=== PATIENT | male | born 1965 | race Caucasian/White ===

== ENCOUNTER → 2018-01-14 08:15 | Outpatient (CLI) | payer OTHER, SELFPAY ==
[2018-01-14 08:40] LABS: Basophils % 0.5 % (0.1-2.0); Eosinophils # 0.2 K/mm3 (0.0-0.4); Eosinophils % 2.4 % (0.1-12.0); Hematocrit 41.7 % (42.0-52.0); Hemoglobin 12.8 g/dL (14.1-18.0); Lymphocytes % 25.7 % (10-50); Mean Corpuscular HGB Conc 30.7 g/dL (31.8-35.4); Mean Corpuscular Hemoglobin 25.5 pg (27.0-31.2); Mean Platelet Volume 8.6 fl (7.4-10.4); Monocytes # 0.5 K/mm3 (0.1-1.0); Monocytes % 7.2 % (1.7-9.3); Neutrophils # 4.9 K/mm3 (1.8-7.8); Neutrophils % 64.3 % (37.0-80.0); Platelet Count 288 K/mm3 (142-424); Red Blood Count 5.03 M/mm3 (4.60-6.20); Red Cell Distribution Width 15.3 % (11.5-17.5); White Blood Count 7.6 K/mm3 (4.8-10.8)
[2018-01-14 09:32] LABS: Alanine Aminotransferase 23 U/L (12-78); Albumin Level 3.3 gm/dL (3.4-5.0); Alkaline Phosphatase 80 U/L (46-116); Anion Gap 12.1 mEq/L (5-15); Aspartate Amino Transferase 14 U/L (15-37); Bilirubin,Total 0.4 mg/dL (0.2-1.0); Blood Urea Nitrogen 15 mg/dL (7-18); Calcium 8.5 mg/dL (8.5-10.1); Carbon Dioxide 27 mmol/L (21.0-32.0); Chloride 106 mmol/L (98-107); Chol/HDL Ratio 6.1 (1-3.5); Cholesterol 242 mg/dL (140-200); Creatinine,Serum 0.85 mg/dL (0.70-1.30); Estimated Glomerular Filt Rate 95 ml/min (>60); GFR (African American) 115 ML/MIN (>60); Globulin 3.4 gm/dl (1.3-3.2); Glucose 104 mg/dL (74-106); HDL Cholesterol 40 mg/dL (27-67); LDL Cholesterol 163 mg/dL (0-130); Potassium 4.1 mmoL/L (3.5-5.1); Sodium 141 mmol/L (136-145); Thyroid Stimulating Hormone 1.51 uIU/ml (0.358-3.740); Total Protein,Serum 6.7 gm/dL (6.4-8.2); Triglycerides 196 mg/dL (30-200); VLDL Cholesterol 39 mg/dL (0-40)
== END ==
PROVIDERS: PCP Family Medicine; Visit Provider Family Medicine
DX: R25.2 Cramp and spasm (principal); Z13.1 Encounter for screening for diabetes mellitus; Z13.220 Encounter for screening for lipoid disorders
CPT/HCPCS: 36415; 80053; 80061; 84443; 85025

== ENCOUNTER → 2019-03-20 16:06 | Outpatient (CLI) | payer OTHER, SELFPAY ==
--- NOTE | 2019-03-20 16:14 | XR_ITS ---
PROCEDURE: XR FOOT WT BEARING RT 3V CLINICAL INDICATION: pain COMPARISON: No exams were available for comparison FINDINGS: No fracture or dislocation. No lytic or blastic change. There is normal mineralization. Minimal osteoarthritic change 1st MTP joint Other findings:There is a small calcaneal spur. There are minimal osteoarthritic changes at the 1st MTP joint IMPRESSION: Minimal osteoarthritic change 1st MTP joint otherwise negative Dictated by: Tanvir Koo MD 03/20/2019 17:20 Electronically signed by Tanvir Koo MD in [place] 03/20/2019 17:20
--- NOTE | 2019-03-20 16:14 | XR_ITS ---
PROCEDURE: XR FOOT WT BEARING LT 3V CLINICAL INDICATION: pain COMPARISON: No exams were available for comparison FINDINGS: No fracture or dislocation. No lytic or blastic change. There is normal mineralization. The joint spaces are well-preserved. No significant degenerative/arthritic changes. No erosive changes evident. Other findings:There is a small calcaneal spur and there is an os trigonum IMPRESSION: No acute findings. Dictated by: Tanvir Koo MD 03/20/2019 17:19 Electronically signed by Tanvir Koo MD in [place] 03/20/2019 17:21
== END ==
PROVIDERS: PCP Family Medicine; Visit Provider Podiatrist
DX: M79.672 Pain in left foot (principal); M79.671 Pain in right foot
CPT/HCPCS: 73630

== ENCOUNTER 2020-11-16 09:14 | Emergency (ER) | payer OTHER, SELFPAY ==
[2020-11-16 09:15] VITALS: BP 120/88; PULSE 69; RESP 20; TEMP 36.6; O2SAT 98; BMI 28.4
--- NOTE | 2020-11-16 09:49 | HMH.EDUTC ---
[facility] [place] Clinical Impression: Exposure to COVID-19 virus Disposition: Home, Self-Care Condition on Discharge: Good Instructions: Preventing the Spread of Coronavirus Discharge Instructions Additional Instructions: You have been tested for COVID19. Please isolate as if you are positive until test results received. Referrals: Saran Mcallister MD [Primary Care Provider] - Time of Disposition: 09:59 Medical Decision Making - Benjamín Inquiry Pt receiving controlled substance: No Vital Signs: 11/16/20 09:15 Temperature 97.8 F Temperature Source Oral Pulse Rate [Right Brachial] 69 Respiratory Rate 20 Blood Pressure [Right Arm] 120/88 Blood Pressure Mean [Right Arm] 98 Blood Pressure Source [Right Arm] Automatic Cuff Blood Pressure Position [Right Arm] Sitting 02 Sat by Pulse Oximetry 98 Oxygen Delivery Method Room Air Orders (Tests/Meds): ORDERS Category Date Time Status Covid-19 Nasal PCR ([facility]) Routine Lab 11/16/20 09:37 Ordered [facility] [place] H[place] - General Stated complaint: exposure to covid Time Seen by Provider: 11/16/20 09:50 Mode of Arrival: Ambulatory Source of Information: Patient Limitations: No Limitations Description of Symptoms (Recalled from Triage Doc. by RN): PATIENT REQUESTING COVID TEST. TESTED POSITIVE YESTERDAY. DENIES SYMPTOMS HEENT Symptoms (Recalled from RN notes): No Resp Symptoms (Recalled from RN notes): No Skin Symptoms (Recalled from RN notes): No MS Symptoms (Recalled from RN notes): No Functional Status (Recalled from RN notes): WNL - History of Present Illness Provider Complaint: tested positive for COVID19 yesterday. She had been feeling poorly for 3-4 days. He has no symptoms at this time. Onset (ago): day(s) (1) Relieving factors: none Exacerbating factors: none Associated symptoms: denies other symptoms Treatments prior to arrival: none - Related Data Previous Rx's Medication Instructions Recorded diclofenac sodium 1 % topical gel 4 g TOPICAL QID PRN #100 g 03/28/19 methylprednisolone 4 mg tablets in See Rx Instructions PO PER PKG DIR 03/28/19 a dose pack #21 tab Allergies Allergy/AdvReac Type Severity Reaction Status Date / Time No Known Allergies Allergy Verified 03/28/19 15:17 - Worker's Comp Is this a Worker's Comp case?: No [facility] History - Hepatitis A Screen Drug use history?: No High risk sexual behaviors?: No History of sexually transmitted infection?: No Currently employed?: No Childcare worker?: No Do you have indoor plumbing?: Yes Do you have electricity?: Yes Attestation statement:: This patient has been screened for Hepatitis A risk factors. I have reviewed the patient's past medical history: Yes Medical History: Reports:: Gastroesophageal Reflux Disease(GERD), Hyperlipidemia Denies:: Cancer, Diabetes Mellitus Type 1, Diabetes Mellitus Type 2, Internal Pacemaker, Lung Disease, MRSA, Seizures Laterality Cases: Left: Arthroscopy Shoulder Other Surgeries: Yes: Colonoscopy. No: Pacemaker Amputation: No Fractures: No - Social History Smoking Status: Never smoker Alcohol Intake: never Occupational Status: employed Family Hx:: Diabetes, Heart Attack ROS Obtained: Yes All systems reviewed & no additional complaints Physical Exam - General General appearance: alert, in no apparent distress - Head Head exam: normocephalic - Eye Eye exam: Present: PERRL - ENT ENT exam: Present: normal oropharynx, TM's normal bilaterally - Neck Neck exam: Absent: lymphadenopathy - Chest Chest inspection: Present: normal inspection, symmetric chest wall rise - Respiratory Respiratory exam: Present: normal lung sounds bilaterally - Cardiovascular Cardiovascular exam: Present: regular rate, normal rhythm - Neurological Exam Neurological exam: Present: alert, oriented X3 - Psychiatric Psychiatric exam: Present: normal affect, normal mood - Skin Skin exam: Present: warm, dry, intact
[2020-11-16 10:03] VITALS: BP 120/88; PULSE 69; RESP 20; TEMP 36.6; O2SAT 98
== END 2020-11-16 10:05 | disposition home or self-care (01) ==
PROVIDERS: Emergency Provider Physician Assistant; PCP Family Medicine
DX: Z20.822 Contact with and (suspected) exposure to COVID-19 (principal); K21.9 Gastro-esophageal reflux disease without esophagitis; E78.5 Hyperlipidemia, unspecified
CPT/HCPCS: 99202; C9803; G0463; U0003; U0005

== ENCOUNTER → 2020-11-22 09:00 | Outpatient (CLI) | payer OTHER, SELFPAY | PROVIDERS: PCP Family Medicine; Visit Provider Nurse Practitioner | DX: Z20.822 Contact with and (suspected) exposure to COVID-19 (principal) | CPT/HCPCS: C9803; U0003; U0005 ==

== ENCOUNTER → 2021-01-28 14:58 | Outpatient (CLI) | payer OTHER, SELFPAY | PROVIDERS: PCP Family Medicine; Visit Provider Nurse Practitioner | DX: U07.1 COVID-19 (principal) | CPT/HCPCS: C9803; U0003; U0005 ==

== ENCOUNTER → 2022-04-21 08:51 | Outpatient (CLI) | payer OTHER, SELFPAY ==
--- NOTE | 2022-04-21 09:05 | US_ITS ---
FINAL REPORT TECHNIQUE: Sonographic images of the right upper quadrant were obtained. CLINICAL HISTORY: ABD PAIN FINDINGS: PANCREAS: The tail the pancreas is obscured, the head of the pancreas is normal. LIVER: Homogeneous. No focal hepatic lesion. No intrahepatic biliary ductal dilatation. GALLBLADDER: No gallstones. No gallbladder wall thickening or pericholecystic fluid. COMMON DUCT: 3 mm. Normal for age. RIGHT KIDNEY: The right kidney measures 10.0 cm. There is no hydronephrosis, mass, or stone. FREE FLUID: None. IMPRESSION: Unremarkable ultrasound of the right upper quadrant. Reviewed, Interpreted and Dictated by Johanna Suárez MD Transcribed by Sima Arriaza Authenticated and [facility]
== END ==
PROVIDERS: PCP Family Medicine; Visit Provider Physician Assistant
DX: R10.11 Right upper quadrant pain (principal)
CPT/HCPCS: 76705

== ENCOUNTER → 2022-04-28 09:37 | Outpatient (CLI) | payer OTHER, SELFPAY ==
--- NOTE | 2022-04-28 09:44 | NM_ITS ---
FINAL REPORT CLINICAL HISTORY: RUQ PAIN 9:50 am 8.36 [facility]ci tc choletec 1.9 mcg of cck injected into lt ant no gb stones on u/s done 04/21/22 no pain during cck FINDINGS: HEPATOBILIARY SCAN WITH CCK INJECTION Following intravenous administration of approximately 8.36 of technetium Choletec, multiple scintigraphic images were obtained. The hepatic parenchymal phase shows homogeneous distribution of the tracer throughout the liver. Ducts and bowel are visualized by 5 minutes. The gallbladder is visualized by 15 minutes. Following intravenous CCK injection, gallbladder ejection fraction is estimated to be 90 %. IMPRESSION: Normal gallbladder ejection fraction of 90 %. Reviewed, Interpreted and Dictated by Alexis Hannah III, MD Transcribed by Henry Felix Authenticated and [facility]
== END ==
PROVIDERS: PCP Family Medicine; Visit Provider Physician Assistant
DX: R10.11 Right upper quadrant pain (principal)
CPT/HCPCS: 78227; A9537; J2805

== ENCOUNTER → 2022-05-07 16:28 | Outpatient (CLI) | payer OTHER, SELFPAY ==
[2022-05-07 18:05] LABS: Alanine Aminotransferase 22 U/L (12-78); Aspartate Amino Transferase 32 U/L (17-59); Bilirubin,Unconjugated 0.4 mg/dL (0.0-1.1)
[2022-05-07 18:06] LABS: Albumin Level 4.4 g/dl (3.5-5.0); Alkaline Phosphatase 78 U/L (38-126); Bilirubin,Direct 0.2 mg/dl (0.0-0.4); Bilirubin,Indirect 0.4 mg/dL (0.0-0.9); Bilirubin,Total 0.6 mg/dl (0.2-1.3); Total Protein,Serum 6.9 g/dl (6.3-8.2)
[2022-05-07 18:11] LABS: C-Reactive Protein 2.9 mg/L (0-4)
== END ==
PROVIDERS: Nurse Practitioner; PCP Family Medicine; Visit Provider Physician Assistant
DX: R10.10 Upper abdominal pain, unspecified (principal)
CPT/HCPCS: 36415; 80076; 86140

== ENCOUNTER → 2022-06-08 15:33 | Outpatient (CLI) | payer OTHER, SELFPAY ==
--- NOTE | 2022-06-08 15:40 | US_ITS ---
FINAL REPORT TECHNIQUE: Limited sonographic imaging of the scalp soft tissues was obtained. CLINICAL HISTORY: MASS OF SCALP FINDINGS: There is a 2.7 x 2.6 x 1.2 cm, hyperechoic area in the left scalp at the region of interest of uncertain etiology. Findings may represent lipoma or other mass. This does not appear to represent simple fluid. IMPRESSION: Hyperechoic left scalp mass which may represent lipoma but does not appear to represent simple fluid. Reviewed, Interpreted and Dictated by Alexis Hannah III, MD Transcribed by Mikaela Duque Authenticated and [facility]
== END ==
PROVIDERS: PCP Family Medicine; Visit Provider Family Medicine
DX: R22.0 Localized swelling, mass and lump, head (principal)
CPT/HCPCS: 76536

== ENCOUNTER → 2022-08-17 13:29 | Outpatient (CLI) | payer OTHER, SELFPAY ==
--- NOTE | 2022-08-17 13:30 | CT_ITS ---
FINAL REPORT TECHNIQUE: Multiple axial CT sections were performed from the foramen magnum to the vertex. Coronal reformatted images were also obtained. Precontrast and postcontrast injection images were obtained. This study was performed with technique to keep radiation doses as low as reasonably achievable, (ALARA). Individualized dose reduction techniques using automated exposure control or adjustment of mA and/or kV according to the patient size were employed. CLINICAL HISTORY: mass on head FINDINGS: The ventricles are normal in size. There is no evidence of hemorrhage. No masses are identified. No extra-axial fluid collection is seen. The sinuses are normal. There is a left frontal scalp mass, fluid attenuation without contrast enhancement. This measures 2.7 x 2.5 x 0.7 cm in size, and is either subperiosteal, felt to be more likely, or subcutaneous, felt to be less likely. Postcontrast images demonstrate no abnormal enhancement. IMPRESSION: Left frontal scalp mass, either subperiosteal or subcutaneous cystic mass as described in the body of the report. This may represent a chronic subperiosteal hematoma or another other cystic mass. Reviewed, Interpreted and Dictated by Alexis Hannah III, MD Transcribed by Kelly Lanza Authenticated and [facility]
== END ==
PROVIDERS: PCP Family Medicine; Visit Provider Surgery
DX: D17.0 Benign lipomatous neoplasm of skin and subcutaneous tissue of head, face and neck (principal)
CPT/HCPCS: 70470; Q9966

== ENCOUNTER → 2022-09-23 15:44 | Outpatient (CLI) | payer OTHER, SELFPAY ==
[2022-09-23 16:20] LABS: Basophils % 0.5 % (0.1-2.0); Eosinophils # 0.1 K/mm3 (0.0-0.4); Eosinophils % 1.7 % (0.1-12.0); Hematocrit 46.7 % (42.0-52.0); Hemoglobin 15.2 g/dL (14.1-18.0); Lymphocytes # 1.9 K/mm3 (0.7-4.5); Lymphocytes % 24.5 % (10-50); Mean Corpuscular HGB Conc 32.6 g/dL (31.8-35.4); Mean Corpuscular Hemoglobin 27.4 pg (27.0-31.2); Mean Corpuscular Volume 83.9 fl (80-94); Mean Platelet Volume 8.4 fl (7.4-10.4); Monocytes # 0.6 K/mm3 (0.1-1.0); Monocytes % 7.7 % (1.7-9.3); Neutrophils % 65.6 % (37.0-80.0); Platelet Count 245 K/mm3 (142-424); Red Blood Count 5.56 M/mm3 (4.60-6.20); Red Cell Distribution Width 15.5 % (11.5-17.5); White Blood Count 7.6 K/mm3 (4.8-10.8)
[2022-09-23 16:39] LABS: Chloride 108 mmol/L (98-107)
[2022-09-23 16:40] LABS: Sodium 142 mmol/L (136-145)
[2022-09-23 16:43] LABS: Blood Urea Nitrogen 18 mg/dl (9-20); Calcium 9.9 mg/dl (8.4-10.2); Carbon Dioxide 26 mmol/L (22.0-30.0); Estimated Glomerular Filt Rate 88 ml/min (>60); GFR (African American) 106 ML/MIN (>60); Glucose 94 mg/dl (74-100)
== END ==
PROVIDERS: PCP Family Medicine; Visit Provider Surgery
DX: Z01.812 Encounter for preprocedural laboratory examination (principal); D17.0 Benign lipomatous neoplasm of skin and subcutaneous tissue of head, face and neck
CPT/HCPCS: 36415; 80048; 85025

== ENCOUNTER 2022-09-28 13:29 | Day surgery (SDC) | payer OTHER, SELFPAY ==
[2022-09-28] VITALS (8 sets, daily range): BP systolic 130–166; BP diastolic 72–100; PULSE 55–66; RESP 16–18; TEMP 36.3–36.8; O2SAT 91–981; BMI 28.7
--- NOTE | 2022-09-28 13:59 | EXP.GEN.HP ---
HPI HPI HPI: Patient presents for excision scalp lipoma. He is a pleasant 57-year-old male whom I have seen in the past for other issues. He presented to the office 08/06/2022 for referral for possible lipoma on the scalp. He states that he has had an area present for about 2 years. Initially it started out small but has increased in size. He did have an ultrasound of the area which reveals a 2.7 cm hyperechoic mass of uncertain etiology. It was felt that this could represent lipoma or other mass but is not fluid-filled cyst. Patient denies any trauma. Given the location and equivocal ultrasound findings I had him undergo CT scan to rule out any deep component or skull defect. This reveals left frontal scalp mass either subperiosteal or subcutaneous cystic mass measuring 2.7 cm longitudinally. [facility] Disclaimer: The information contained in this section may have been updated after the patient was seen, as this information can be updated by other users. Surgical History H/O repair of rotator cuff History of colonoscopy History of esophagogastroduodenoscopy (EGD) Family History (Updated 09/28/22 @ 13:41 by Ariane Steward RN) Family history of diabetes mellitus type II Family history of myocardial infarction Social History (Updated 09/28/22 @ 13:41 by Ariane Steward RN) Smoking Status: Never smoker alcohol intake: current current occupational status: employed Travel in the last 8 weeks: None caffeine: No Meds Home Medications and Allergies Home Medications Medication Instructions Recorded Confirmed Type pantoprazole 20 mg tablet,delayed 20 mg PO DAILY GERD 60 days #60 05/07/22 08/20/22 Rx release (Protonix) tabs New Prescriptions to Start Prescriptions: Allergies Allergy/AdvReac Type Severity Reaction Status Date / Time No Known Allergies Allergy Verified 09/28/22 13:39 Exam Data for Last 24 hours Vital signs and Labs for Last 24 Hours: Temp Pulse Resp BP Pulse Ox O2 Del Method 98.3 F 59 L 18 149/89 H 96 Room Air 09/28/22 13:43 09/28/22 13:43 09/28/22 13:43 09/28/22 13:43 09/28/22 13:43 09/28/22 13:43 I & O for Last 24 hours: Intake & Output 09/26/22 09/27/22 09/28/22 09/29/22 11:59 11:59 11:59 11:59 Weight 206 lb Constitutional Constitutional: no acute distress *Routine HEENT Exam Head: Present normocephalic Eye: Present EOMI and PERRL ENT: Present mucous membranes moist Comments: Visible palpable scalp lesion. *Routine Neck Exam Neck: Present supple; Absent lymphadenopathy *Routine Respiratory Exam Respiratory: Present CTA bilaterally *Routine Cardiovascular Exam Cardiovascular: Present RRR *Routine Abdominal Exam Abdominal: Present soft and normoactive bowel sounds; Absent tenderness *Routine Rectal Exam Rectal:: deferred *Routine Genitalia Exam Genitalia:: deferred *Routine Extremities Exam Extremities: Absent cyanosis, clubbing or edema *Routine Skin Exam Skin: Present warm; Absent rash *Routine Neurological Exam Neurological: Present alert and oriented X3 Assessment and Plan *Assessment and plan (1) Lipoma of scalp: Status: Acute Category: Medical Code(s): D17.0 - Benign lipomatous neoplasm of skin and subcutaneous tissue of head, face and neck Plan Excision of scalp lesion.
--- NOTE | 2022-09-28 14:04 | EXP.ANES.CKL ---
[facility] Disclaimer: The information contained in this section may have been updated after the patient was seen, as this information can be updated by other users. Surgical History H/O repair of rotator cuff History of colonoscopy History of esophagogastroduodenoscopy (EGD) Family History (Updated 09/28/22 @ 13:41 by Ariane Steward RN) Other Family history of diabetes mellitus type II Family history of myocardial infarction Social History (Updated 09/28/22 @ 13:41 by Ariane Steward RN) Smoking Status: Never smoker alcohol intake: current substance use type: denies use current occupational status: employed Travel in the last 8 weeks: None caffeine: No [facility] Anesthesia Checklist Patient Identification Patient Identification: Arm Band Structural Data Admitted From: Home Planned Operative Procedure/s: Excision of Scalp Cyst Consent for Planned Operative Procedure(s) Verified: Yes Verified Documents: Surgical Consent and History and Physical NPO Status Verified Time NPO: 06:30 Additional verifications Anesthesia Reactions: No Hx Blood Transfusions: No Airway Assessment Mallampati Score:: Class II C-Spine Mobility Assessed: Yes TMJ Mobility Assessed: Yes Dentition: Good Dentition Neurological Assessment Level of Consciousness: Awake and Alert Anesthesia Plan Anesthesia Risk discussed: Yes Anesthesia Plan: Verified ASA Class: I Anesthesia Type: General
--- NOTE | 2022-09-28 15:01 | EXP.OP.NOTE ---
Date of procedure: 09/28/22 Pre-op Diagnosis:: Subcutaneous lesion frontal scalp Post-op Diagnosis:: Same Procedure performed:: Excision of frontal scalp lesion (excisional length 3 cm) with intermediate complexity closure Surgeon:: Alexis Flores MD SUPERVISOR COMPOSING ROOM:: Amandeep Doss Anesthesia: local and LMA Estimated blood loss (mL): 10 Clinical Note:: Patient presents for excision scalp lipoma. He is a pleasant 57-year-old male whom I have seen in the past for other issues. He presented to the office 08/06/2022 for referral for possible lipoma on the scalp. He states that he has had an area present for about 2 years. Initially it started out small but has increased in size. He did have an ultrasound of the area which reveals a 2.7 cm hyperechoic mass of uncertain etiology. It was felt that this could represent lipoma or other mass but is not fluid-filled cyst. Patient denies any trauma. Given the location and equivocal ultrasound findings I had him undergo CT scan to rule out any deep component or skull defect. This reveals left frontal scalp mass either subperiosteal or subcutaneous cystic mass measuring 2.7 cm longitudinally. Operative findings:: Well-circumscribed lipomatous tissue down to the periosteum consistent with likely lipoma. Operative note:: Consent was obtained patient was taken the operating room. He was given preoperative intravenous antibiotics. In the operating room he was placed in a supine position. General anesthesia was induced via LMA. Area was prepped and draped in the standard surgical fashion. Lesion was marked with a skin marker for planned longitudinal incision. Boundaries of the lesion were marked. Local anesthetic was infiltrated. Transverse incision was made. Dissection was carried down through full-thickness of the skin to the superficial subcutaneous tissues. Galea was incised. There was lipomatous tissue encountered. With blunt dissection and some use of tenotomy dissection this was dissected free from the periosteum. It was dissected free in its entirety. It was sent off as a specimen. Hemostasis was achieved with electrocautery. Additional local anesthetic was infiltrated. Galea was closed with several interrupted 3-0 Vicryl sutures. Dermis was reapproximated with a couple of interrupted 3-0 Vicryl sutures. Skin was closed with 4-0 Monocryl in a subcuticular fashion. Dermabond and pressure dressing was applied. Condition: stable Disposition: PACU Complications:: None immediately apparent
--- NOTE | 2022-09-28 15:08 | P.PNANES_ITS ---
[facility] Anesthesia Record Part I Anesthesia Record I Intake, IV Amount: 800 Hydration: Adequate Estimated blood loss (mL): 5 Urine output (mL): 0 Blood Products used (#): none Blood Pressure: 144/92 SaO2: 91 Pulse Rate: 66 Airway Patency: Patent Respiratory Rate: 16 Temperature: 97.3 F Pain scale (0-10): 0 Nausea: No Vomiting: No Patient is:: Drowsy and Stable Stable to PACU at:: 15:05
--- NOTE | 2022-09-28 17:37 | P.PNANES_ITS ---
[facility] Anesthesia Record Part II Anesthesia Record Part II Discharge Time: 15:35 Destination: Surgical Day Care (OP Surgery) PACU nurse assessment reviewed?: Yes Patient Condition:: Good Anesthesia Complications:: None Swallowing reflex intact?: Yes Airway Patency: Patent Cyanosis?: No Blood Pressure: 166/96 SaO2: 981 Respiratory Rate: 16 Pulse Rate: 55 Temperature: 98.1 F Mental Status: Alert & Oriented Pain level:: 0 Nausea and/or vomitting:: None Intake, IV Amount: 0 Hydration: Adequate
== END 2022-09-28 16:06 | disposition home or self-care (01) ==
PROVIDERS: PCP Family Medicine; Visit Provider Surgery
PROC: (CPT 11423; principal; 2022-09-28 14:30)
DX: D17.0 Benign lipomatous neoplasm of skin and subcutaneous tissue of head, face and neck (principal)
CPT/HCPCS: 11423; 12032; 96374; J2405

== ENCOUNTER 2022-11-27 08:42 | Day surgery (SDC) | payer OTHER, SELFPAY ==
[2022-11-24 14:03] VITALS: BMI 28.5
--- NOTE | 2022-11-27 08:39 | P.HP_ITS ---
HPI HPI HPI: Patient presents for upper endoscopy. 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 When he followed up in the office on 10/22/2022 he described symptoms of dysphagia. He often feels like food gets stuck temporarily and then flushes down. I had previously performed upper endoscopy on him with dilatation to 20 mm on 10/22/2015. He has had several prior endoscopies before that. He actually had a prior history of esophageal food impaction requiring emergent upper endoscopy on 2 separate occasions, once with Dr. Fong and also at [facility]. In 2007 he had an upper endoscopy with dilatation by gastroenterology. In 2011 patient had symptoms of upper GI bleeding and Dr. Fong had performed upper endoscopy which revealed ulcer at the gastroesophageal junction. Plan was to proceed with upper endoscopy with biopsies and possible dilatation. [facility] Disclaimer: The information contained in this section may have been updated after the patient was seen, as this information can be updated by other users. Surgical History H/O repair of rotator cuff History of colonoscopy History of esophagogastroduodenoscopy (EGD) History of local excision of skin lesion Family History Other Family history of diabetes mellitus type II Family history of myocardial infarction Social History (Updated 11/27/22 @ 08:51 by Jacquelyn Deleon RN) Smoking Status: Never smoker alcohol intake: current substance use type: denies use current occupational status: employed Travel in the last 8 weeks: None caffeine: No Meds Home Medications and Allergies Home Medications Medication Instructions Recorded Confirmed Type pantoprazole 20 mg tablet,delayed 20 mg PO DAILY GERD 60 days #60 05/07/22 11/27/22 Rx release (Protonix) tabs New Prescriptions to Start Prescriptions: Allergies Allergy/AdvReac Type Severity Reaction Status Date / Time No Known Allergies Allergy Verified 11/27/22 08:49 Exam Data for Last 24 hours I & O for Last 24 hours: Intake & Output 11/24/22 11/25/22 11/26/22 11/27/22 11:59 11:59 11:59 11:59 Weight 205 lb Constitutional Constitutional: no acute distress *Routine HEENT Exam Head: Present normocephalic Eye: Present EOMI and PERRL ENT: Present mucous membranes moist *Routine Neck Exam Neck: Present supple; Absent lymphadenopathy *Routine Respiratory Exam Respiratory: Present CTA bilaterally *Routine Cardiovascular Exam Cardiovascular: Present RRR *Routine Abdominal Exam Abdominal: Present soft and normoactive bowel sounds; Absent tenderness *Routine Rectal Exam Rectal:: deferred *Routine Genitalia Exam Genitalia:: deferred *Routine Extremities Exam Extremities: Absent cyanosis, clubbing or edema *Routine Skin Exam Skin: Present warm; Absent rash *Routine Neurological Exam Neurological: Present alert and oriented X3 Assessment and Plan *Assessment and plan (1) Dysphagia: Status: Acute Category: Medical Code(s): R13.10 - Dysphagia, unspecified Plan Esophagogastroduodenoscopy with biopsies and possible dilatation
[2022-11-27 08:51] VITALS: BP 155/105; PULSE 61; RESP 18; TEMP 36.5; O2SAT 99
[2022-11-27 09:06] VITALS: O2SAT 99
--- NOTE | 2022-11-27 09:25 | P.PCN_ITS ---
Procedure: Date: 11/27/22 Patient Date of :: 1965 Procedure Performed:: Esophagogastroduodenoscopy and biopsy using pneumatic dilator to 18 mm Indications:: Patient presents for upper endoscopy. 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 When he followed up in the office on 10/22/2022 he described symptoms of dysphagia. He often feels like food gets stuck temporarily and then flushes down. I had previously performed upper endoscopy on him with dilatation to 20 mm on 10/22/2015. He has had several prior endoscopies before that. He actually had a prior history of esophageal food impaction requiring emergent upper endoscopy on 2 separate occasions, once with Dr. Fong and also at [facility]. In 2007 he had an upper endoscopy with dilatation by gastroenterology. In 2011 patient had symptoms of upper GI bleeding and Dr. Fong had performed upper endoscopy which revealed ulcer at the gastroesophageal junction. Plan was to proceed with upper endoscopy with biopsies and possible dilatation. Performing Provider:: Alexis Flores MD Referring Provider:: . Sedation:: MAC sedation Procedure:: ArrangePatient history was obtained and appropriate physical examination was performed. Patient's medications and allergies were reviewed. Informed consent was obtained after explaining the benefits, alternatives, and risks of the procedure including, but not limited to, bleeding, perforation, missed lesions, and adverse reaction to anesthesia medications. Patient was transported to endoscopy procedure room. Patient was connected to monitoring devices. Throughout the procedure the patient's blood pressure, pulse, and oxygen saturations were monitored continuously. Patient identification and planned procedure were verified by the staff. Patient was positioned in lateral decubitus position. Olympus endoscope was inserted via the oropharynx. Esophagus was cannulated. There is mild spasm. Gastroesophageal junction was encountered at approximately 35 cm. There was significant focal erosive esophagitis and findings of possible Cheng's esophagus with some luminal narrowing at the site. This was traversed although it was somewhat tight. Stomach was cannulated and insufflated. Retroflexion revealed moderate sliding hiatal hernia. He had some minor diffuse gastropathy. Biopsies were obtained. There were several gastric polyps consistent with fundic gland polyps which were biopsied. Pylorus was traversed and duodenum appeared unremarkable. Endoscope was withdrawn into the distal esophagus and multiple biopsies were obtained near the gastroesophageal junction at the site of erosive esophagitis and possible Cheng's esophagus. Dilatation was then performed sequentially using the elation pneumatic dilator from 15 mm to 16.5 to 18 mm. Endoscope was then advanced into the stomach which was desufflated and the endoscope was withdrawn. . Findings:: Gastroesophageal junction at 35 cm Significant focal distal esophageal erosive esophagitis with luminal narrowing Possible Cheng's esophagus Gastric fundic gland polyps Diffuse gastropathy Recommendations:: I will follow-up on the biopsies. If benign may need repeat endoscopy with additional dilatation in the near future. Complications:: None immediately apparent Estimated blood obtained (mL): 4 Colonoscopy Component Colonoscopy Component Was a colonoscopy performed during today's procedure?: No
[2022-11-27 09:26] VITALS: BP 109/64; PULSE 80; RESP 19; O2SAT 90
[2022-11-27 09:36] VITALS: BP 103/70; PULSE 75; RESP 16; O2SAT 91
[2022-11-27 09:46] VITALS: BP 105/71; PULSE 72; RESP 16; O2SAT 92
[2022-11-27 09:56] VITALS: BP 109/69; PULSE 86; RESP 16; TEMP 36.6; O2SAT 96
--- NOTE | 2022-11-27 15:54 | P.PNANES_ITS ---
[facility] Disclaimer: The information contained in this section may have been updated after the patient was seen, as this information can be updated by other users. Surgical History H/O repair of rotator cuff History of colonoscopy History of esophagogastroduodenoscopy (EGD) History of local excision of skin lesion Family History Other Family history of diabetes mellitus type II Family history of myocardial infarction Social History (Updated 11/27/22 @ 08:51 by Jacquelyn Deleon RN) Smoking Status: Never smoker alcohol intake: current substance use type: denies use current occupational status: employed Travel in the last 8 weeks: None caffeine: No [facility] Anesthesia Checklist Patient Identification Patient Identification: Arm Band and Family Structural Data Admitted From: Home Planned Operative Procedure/s: DGD Consent for Planned Operative Procedure(s) Verified: Yes Verified Documents: Surgical Consent NPO Status Verified Time NPO: 00:00 Additional verifications Anesthesia Reactions: No Hx Blood Transfusions: No Airway Assessment Mallampati Score:: Class II C-Spine Mobility Assessed: Yes TMJ Mobility Assessed: Yes Dentition: Good Dentition Neurological Assessment Level of Consciousness: Alert and Appropriate Hx Seizures: Yes Numbness or tingling in extremities: Yes Anesthesia Plan Anesthesia Risk discussed: Yes ASA Class: I Anesthesia Type: MAC
== END 2022-11-27 09:56 | disposition home or self-care (01) ==
PROVIDERS: PCP Family Medicine; Visit Provider Surgery
PROC: 0DJ08ZZ Inspection of Upper Intestinal Tract, Via Natural or Artificial Opening Endoscopic (ICD-10-PCS; CPT 43235; principal; 2022-11-27 09:30)
DX: R13.10 Dysphagia, unspecified (principal); K29.50 Unspecified chronic gastritis without bleeding; K31.7 Polyp of stomach and duodenum; K22.10 Ulcer of esophagus without bleeding
CPT/HCPCS: 43239; 43249

== ENCOUNTER → 2023-02-16 13:40 | Outpatient (CLI) | payer BC, SELFPAY ==
--- NOTE | 2023-02-16 13:44 | XR_ITS ---
FINAL REPORT CLINICAL HISTORY: left toe/foot pain. no trauma FINDINGS: Left foot Three views were obtained. There is no acute fracture or dislocation. The joint spaces appear normal. There is a moderate plantar spur. There is an os trigonum measuring 1 cm. IMPRESSION: No acute process. Reviewed, Interpreted and Dictated by Aaron Smiley MD Transcribed by Nidia Monahan Authenticated and [facility]
[2023-02-16 15:23] LABS: Basophils % 0.5 % (0.1-2.0); Eosinophils # 0.1 K/mm3 (0.0-0.4); Eosinophils % 1.3 % (0.1-12.0); Hematocrit 48.7 % (42.0-52.0); Hemoglobin 16.6 g/dL (14.1-18.0); Lymphocytes # 1.7 K/mm3 (0.7-4.5); Lymphocytes % 22.6 % (10-50); Mean Corpuscular Hemoglobin 29.1 pg (27.0-31.2); Mean Corpuscular Volume 85.6 fl (80-94); Mean Platelet Volume 8.9 fl (7.4-10.4); Monocytes # 0.5 K/mm3 (0.1-1.0); Monocytes % 6.9 % (1.7-9.3); Neutrophils # 5.2 K/mm3 (1.8-7.8); Neutrophils % 68.7 % (37.0-80.0); Platelet Count 264 K/mm3 (142-424); Red Blood Count 5.69 M/mm3 (4.60-6.20); Red Cell Distribution Width 14.4 % (11.5-17.5); White Blood Count 7.5 K/mm3 (4.8-10.8)
[2023-02-16 15:44] LABS: Uric Acid 7.4 mg/dl (3.5-8.5)
== END ==
PROVIDERS: PCP Nurse Practitioner Family; Visit Provider Nurse Practitioner Family
DX: M77.52 Other enthesopathy of left foot and ankle (principal); M79.675 Pain in left toe(s)
CPT/HCPCS: 73630; 84550; 85025

== ENCOUNTER 2023-04-03 11:59 | Emergency (ER) | payer BC, SELFPAY ==
[2023-04-03 12:01] VITALS: BP 101/73; PULSE 59; RESP 18; TEMP 36.7; O2SAT 96; BMI 29.9
[2023-04-03] MEDS: ONDANSETRON 4MG ODT 4 MG SL (12:15)
--- NOTE | 2023-04-03 12:37 | XR_ITS ---
PROCEDURE INFORMATION: Exam: XR Left Hand Exam date and time: 04/03/2023 12:37 PM Age: 58 years old Clinical indication: Injury or trauma; Left; Index finger and middle finger and ring finger; Patient HX: Saw accident, laceration to index, middle and ring fingers. Index being the worse, patient unable to straighten finger. TECHNIQUE: Imaging protocol: Radiologic exam of the left hand. Views: 3 or more views. COMPARISON: No relevant prior studies available. FINDINGS: Bones/joints: There is irregularity of the tuft of the distal phalanx of the 3rd finger-suggest clinical correlation with site of injury. No fracture of the 4th finger is identified. The 2nd finger/index is difficult to evaluate since it can not be straightened. There is an avulsion of the tuft of the distal phalanx series 3, image 1, series 4, image 1 with comminution and distraction of the fracture fragments in soft tissue laceration which may involve the nail bed. The middle phalanx appears intact. Soft tissues: As above. IMPRESSION: There is avulsion fracture of the tuft of the 2nd finger/index with comminution/fragmentation at the fracture site. The associated soft tissue laceration appears to involve the nail bed. No further definite fractures are identified although there is irregularity of the tuft of the 3rd finger/middle finger which could represent a nondisplaced fracture- suggest clinical correlation.
[2023-04-03] MEDS: MORPHINE 4MG/ML SYRINGE 4 MG IV (12:53)
--- NOTE | 2023-04-03 12:59 | PC.NURSE ---
DR RODRIGUEZ AT BEDSIDE
--- NOTE | 2023-04-03 13:01 | HMH.EDGENADL ---
Discharge Plan Disposition Patient Disposition: Xfer Other Prescriptions Prescriptions: No Action pantoprazole [Protonix] 20 mg tablet,delayed release (DR/EC) 20 mg PO DAILY 60 Days Qty: 60 4RF diclofenac sodium [Voltaren Arthritis Pain] 1 % gel 2 g topical QID PRN (Reason: pain and swelling) Qty: 100 1RF Rx Instructions: apply to left foot area Referrals Follow up/Referrals: Saran Mcallister MD [Primary Care Provider] - See instructions Clinical Impressions Clinical Impression: Finger laceration, Injury of extensor tendon of left hand, Open fracture of finger, Contact with powered saw as cause of accidental injury Instructions Patient Instructions: DI for Laceration Repair Discharge ED Provider: Jose Antonio Haq General Adult HPI General Chief complaint: Wound/Laceration Stated complaint: AO cut to left hand through three fingers Time Seen by Provider: 04/03/23 12:55 Mode of Arrival: Ambulatory Source of Information: Patient Limitations: No Limitations Description of Symptoms (Recalled from ER Triage Doc. by RN): patient states he was cutting a piece of board with a table saw and slipped and cut the left thumb, index and middle finger. Bleeding has slowed since arrival to ER. History of Present Illness HPI narrative: Patient is a 58-year-old male presents today with left hand injury after tablesaw cut his hand. States this been working with wood. Unknown tetanus vaccination status. The saw cut into the dorsal aspect of the left index finger over the proximal IP joint. His finger is in a fixed flexed position he is unable to extend it. Does have intact sensation distal to this injury. 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 Related Data Previous Rx's Medication Instructions Recorded pantoprazole 20 mg tablet,delayed 20 mg PO DAILY GERD 60 days #60 05/07/22 release (Protonix) tabs diclofenac sodium 1 % topical gel 2 g topical QID PRN pain and 02/16/23 (Voltaren Arthritis Pain) swelling #100 grams Allergies Allergy/AdvReac Type Severity Reaction Status Date / Time No Known Allergies Allergy Verified 02/16/23 13:05 [facility] Disclaimer: The information contained in this section may have been updated after the patient was seen, as this information can be updated by other users. Medical History (Updated 04/03/23 @ 13:08 by Jose Antonio Haq MD) Capsulitis of metatarsophalangeal (MTP) joint of right foot Dysphagia Exposure to COVID-19 virus Metatarsalgia of right foot Pain and swelling of toe of right foot Renal colic on left side Upper abdominal pain Surgical History H/O repair of rotator cuff History of colonoscopy History of esophagogastroduodenoscopy (EGD) History of local excision of skin lesion Family History Other Family history of diabetes mellitus type II Family history of myocardial infarction Social History Smoking Status: Never smoker alcohol intake: current substance use type: denies use current occupational status: employed Travel in the last 8 weeks: None caffeine: No ROS Obtained: Yes All systems reviewed & no additional complaints except as documented Physical Exam General General appearance: alert Respiratory Respiratory exam: Present normal lung sounds bilaterally Cardiovascular Cardiovascular exam: Present regular rate Extremities Exam Extremities exam: Present normal capillary refill (Distal to the injury also has normal sensation) and other (Large laceration over the index finger on the dorsal aspect from the distal aspect of the distal phalanx down through the proximal phalanx extending through the IP joints exposing bone and lacerating through the dorsal aspect of the proximal phalanx at its intra-articular surface patient's finger ); Absent normal inspection (Also lacerations to the dorsal aspect of the nailbed on the third digit and laceration to the dorsal aspect of the thumb as well all neurovascular tact) Neurological Exam Neurological exam: Present alert Medical Decision Making Benjamín Inquiry Pt receiving controlled substance: No Vital Signs: 04/03/23 12:01 Temperature 98.1 F Temperature Source Oral Pulse Rate [Left] 59 L Respiratory Rate 18 Blood Pressure [Right Arm] 101/73 L Blood Pressure Mean [Right Arm] 82 Blood Pressure Source [Right Arm] Automatic Cuff 02 Sat by Pulse Oximetry 96 Oxygen Delivery Method Room Air Orders (Tests/Meds): ED MEDICATIONS Discontinued Medications Generic Name Dose Route Start Last Admin Trade Name Freq PRN Reason Stop Dose Admin Hydromorphone HCl 1 mg 04/03/23 13:07 04/03/23 13:14 Hydromorphone 2mg/Ml Syringe IV 02/10/24 13:08 1 mg ONCE ONE Administration Cefazolin Sodium 2 gm/ Sodium 100 mls @ 200 mls/hr 04/03/23 13:00 04/03/23 13:13 Chloride IV 04/03/23 13:29 200 mls/hr ONCE ONE Administration Morphine Sulfate 4 mg 04/03/23 12:49 04/03/23 12:53 Morphine 4mg/Ml Syringe IV 04/03/23 12:50 4 mg ONCE ONE Administration Ondansetron HCl 4 mg 04/03/23 12:13 04/03/23 12:15 Ondansetron 4mg Odt SL 04/03/23 12:14 4 mg ONCE ONE Administration Tetanus/Reduced Diphtheria/Acell Pertussis 0.5 ml 04/03/23 13:00 04/03/23 13:13 Tet/Diphth/Pert-Adult 0.5ml Syringe IM 04/03/23 13:01 0.5 ml .ONCE ONE Administration ORDERS Category Date Time Status XR hand LT min 3V Stat Exams 04/03/23 12:37 Taken Medical Decision Narrative: Patient 58-year-old with a saw injury. Has an extensor tendon injury appears to be a complete rupture of his second index finger also the sawblade appears to have penetrated into the intra-articular surface of the proximal phalanx at the proximal interphalangeal joint. 2 g of Ancef have been given. I will the patient needs to be seen by hand surgeon today particular because the intra-articular injury to the bone. Sterile gauze will be placed over the wound and loosely covered I discussed the case with [facility] for further evaluation. I discussed the case with Dr. Wilkerson with plastic surgery [facility]. Given the fact that there is intra-articular involvement after further discussion I will transfer the patient to [facility] excepted by Dr. Flannery with plastics. Family is aware of this patient transferred in stable condition. Critical Care Critical Care Time Critical Care Time: No
--- NOTE | 2023-04-03 13:02 | PC.NURSE ---
CONTACTED [facility] AT THIS TIME FOR TRANSFER, AWAITING CALL BACK
[2023-04-03] MEDS: TET/DIPHTH/PERT-ADULT 0.5ML SYRINGE 0.5 ML IM (13:13)
[2023-04-03] MEDS: CEFAZOLIN SODIUM 2 GM in 0.9 % SODIUM CHLORIDE 100 ML IV (13:13)
[2023-04-03] MEDS: HYDROMORPHONE 2MG/ML SYRINGE 1 MG IV (13:14)
--- NOTE | 2023-04-03 13:39 | PC.NURSE ---
DR RODRIGUEZ SPEAKING WITH [facility]
--- NOTE | 2023-04-03 13:54 | PC.NURSE ---
Report called to Riddhi at [facility].
[2023-04-03 14:38] VITALS: BP 132/86; PULSE 78; RESP 18; TEMP 36.6; O2SAT 98
== END 2023-04-03 14:39 | disposition other institution (70) ==
PROVIDERS: Emergency Provider Student in an Organized Health Care Education/Training Program; PCP Family Medicine
DX: S62.611B Displaced fracture of proximal phalanx of left index finger, initial encounter for open fracture (principal); S61.313A Laceration without foreign body of left middle finger with damage to nail, initial encounter; S61.012A Laceration without foreign body of left thumb without damage to nail, initial encounter; W31.2XXA Contact with powered woodworking and forming machines, initial encounter; Z23 Encounter for immunization
CPT/HCPCS: 73130; 90471; 90715; 96365; 96375; 99285; J0690

== ENCOUNTER 2023-08-09 14:42 | Outpatient (CLI) | payer BC, SELFPAY ==
--- NOTE | 2023-08-09 14:44 | XR_ITS ---
FINAL REPORT CLINICAL HISTORY: right knee pain COMPARISON: None FINDINGS: 3 views of the right knee were obtained. There is a bipartite patella. There is no acute fracture or dislocation. The joint spaces are well preserved. There is no acute soft tissue abnormality. IMPRESSION: No acute abnormality identified. Reviewed, Interpreted and Dictated by Genie Sanches MD Transcribed by Ariane Schultz Authenticated and [facility]
== END 2023-08-09 23:59 | disposition home or self-care (01) ==
LOC: RAD 14:43
PROVIDERS: PCP Nurse Practitioner Family; Visit Provider Nurse Practitioner Family
DX: M25.561 Pain in right knee (principal)
CPT/HCPCS: 73562

== ENCOUNTER 2023-10-06 17:00 | Outpatient (RCR) | payer BC, SELFPAY ==
--- NOTE | 2023-09-08 15:46 | HMH.PTOPEV ---
PT Outpatient Evaluation Rehab PT Outpatient Evaluation Start: 09/08/23 14:48 Freq: Status: Active Protocol: Document 09/08/23 15:10 DERIK (Rec: 09/08/23 15:46 PHORMAUDE [id number]) E-signed By Parker Ferrara, PT Outpatient Therapy Subjective History Subjective History Patient Hermilo Feliciano is a 58 year old male presenting to PT today with the chief complaint of R knee pain. He did have an x-ray done on () showing no acute fracture or dislocation, the joint spaces are well preserved and no acute soft tissue abnormalities were noted. He has had no previous injuries, surgeries, or trauma to the R knee. Patient mentioned that he really notices a difference in bending his R knee compared to bending the L knee. Patient stated that this R knee pain has been bothering him for 3 months and doesn't seem to get and better or worse, it is a pain that comes and goes. He mentioned the potential of getting further his R knee evaluated through MRI. Overall he states his only limitation is bending his R knee. New diagnosis of cancer in past 12 No months? Chief Complaint Pain Symptom Type Ache Symptoms Relieved By Heat,Ice,OTC Meds,Activity Prior Functional Limitations None Current Functional Limitations Sleeping,Bending/Stooping Symptom Description Activity Dependent Level of pain today (0-10) 1 Pain scale - at its worst (0-10) 3 Hip/Knee Eval Assistive Device Assistive Devices None / NA Palpation Tenderness right Knee Palpation Finding Tenderness Knee Palpation Overall Comment Pinpoint tenderness on the medial aspect of the patella MMT bilateral Hip Flexion Strength Grade 4 Good Hip Abduction Strength Grade 5 Normal Hip Adduction Strength Grade 5 Normal Knee Extension Strength Grade 5 Normal Knee Flexion Strength Grade 5 Normal ROM left Knee Extension Active Range of Motion ( 1 degrees) Knee Flexion Active Range of Motion ( 135 degrees) right Knee Extension Active Range of Motion ( 1 degrees) Knee Flexion Active Range of Motion ( 127 degrees) Special Tests Hip Piriformis Test Negative Left,Negative Right Knee Anterior Drawer Test Negative Left,Negative Right Knee Anterior Emilee Test Negative Left,Positive Right Knee Valgus Stress Test Negative Left,Negative Right Knee Varus Stress Test Negative Left,Negative Right Knee Wellington Test Negative Left,Negative Right Lower Extremity Functional Index Activities Today, do you or would you have any difficulty at all with: a.Any of your usual work, housework or No difficulty school activities b. Your usual hobbies, recreational or No difficulty sporting activities c. Getting into or out of the bath No difficulty d. Walking between rooms No difficulty e. Putting on your shoes or socks No difficulty f. Squatting No difficulty g. Lifting an object, like a bag of No difficulty groceries from the floor h. Performing light activities around No difficulty your home i. Performing heavy activities around No difficulty your home j. Getting into or out of a car No difficulty k. Walking 2 blocks No difficulty l. Walking a mile No difficulty m. Going up or down 10 stairs (about 1 No difficulty flight of stairs) n. Standing for 1 hour No difficulty o. Sitting for 1 hour No difficulty p. Running on even ground No difficulty q. Running on uneven ground No difficulty r. Making sharp turns while running fast No difficulty s. Hopping No difficulty t. Rolling over in bed No difficulty LEFI Score Lower Extremity Functional Index Score 80 Miscellaneous Dx PT Eval Objective Objective Patient stated that his pain comes and goes and can be dependent upon whatever activity he does throughout the day. Outpatient Therapy Assessment Impairments Problems/Impairmments Palpation Tenderness,Impaired Range of Motion,Impaired Strength Prognosis Rehab Potential Good Comment Patient is appropriate for skilled PT at this time due to reduce pain and improve and address his knee ROM along with LE weakness involving the hip flexors. He will significantly benefit from skilled PT to address these concerns in order to create a better QOL. Short Term Goals Number of Weeks 4 Decreased Palpation Tenderness Yes: PPT from 2/5 to 1/5 Increase Range of Motion Yes: AROM with R Knee Flexion from 127 to 133 Increase Strength Yes: MMT Hip Flexion 4/5 to 5/ 5 Decrease Subjective C/O Pain Yes: from 3/10 to 1/10 Patient to be Ind w/ HEP Yes Client Service Coordinator Goals Number of Weeks 8 Decreased Palpation Tenderness Yes: PPT from 1/5 to 0/5 Increase Range of Motion Yes: AROM with R Knee Flexion to < 135 Decrease Subjective C/O Pain Yes: eliminate pain completely (0/10) with walking activities Patient to be Ind w/ Advanced HEP Yes Outpatient Therapy Plan of Care Treatment Plan May Include Therapeutic Exercise Including Home Yes Exercise Program Manual Therapy Techniques Yes Neuromuscular Re-education Yes Therapeutic Activities to Return to Yes Previous Functional/Work Level Gait Training Yes Mechanical Traction Yes Dry Needling Yes Thermal Modalities Yes Electrical Stimulation Yes Ultrasound/Phonophoresis Yes Orthotics/Bracing/Splinting Yes Manual Lymphatic Drainage Yes Eval/Re-Eval Yes Frequency Times per week 2 Duration Number of Weeks 8 Addendums This patient is a candidate for social No or vocational rehab? Patient/Guardian verbally acknowledges Yes understanding of treatment program and consents to further treatment? Patient/Guardian verbally acknowledges Yes understanding of diagnosis, prognosis and goals for treatment? Eval Complexity PT Charges 02246 - High Complexity Shoulder/Elbow Eval Shoulder Objective Measurements Elbow Objective Measurements PHYSICIAN CERTIFICATION: I certify the specified therapy services for Hermilo Feliciano are required, authorized, and reviewed every 30 days.
== END 2023-10-06 17:05 | disposition home or self-care (01) ==
LOC: PT 17:00
PROVIDERS: Visit Provider Nurse Practitioner Family
DX: M25.561 Pain in right knee (principal)
CPT/HCPCS: 97035; 97110; 97163

== ENCOUNTER 2023-12-10 06:31 | Day surgery (SDC) | payer BC, SELFPAY ==
[2023-12-08 13:31] VITALS: BMI 29.9
[2023-12-10] MEDS: LACTATED RINGERS 1000ML 1,000 ML 100 ML IV (06:40)
[2023-12-10 06:42] VITALS: BP 134/81; PULSE 58; RESP 18; TEMP 36.2; O2SAT 97
--- NOTE | 2023-12-10 06:44 | HMH.SCOPE ---
Procedure: Date: 12/10/23 Patient Date of :: 1965 Procedure Performed:: Esophagogastroduodenoscopy with biopsies and dilatation to 15 mmHg using pneumatic dilator Indications:: Patient is a 58-year-old male who presents for upper endoscopy. 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 When he presented back to the office after that he describes symptoms of dysphagia. On 10/22/2015 I performed upper endoscopy with dilatation of the distal esophagus to 20 mm. He actually had several prior endoscopies before that. He had a prior history of esophageal food impaction requiring emergent upper endoscopy on 2 separate occasions, [address] Fong and also one of the [facility]. In 2007 he had an upper endoscopy with dilatation by gastroenterology. In 2011 he had symptoms of upper GI bleeding and Dr. Fong performed upper endoscopy which revealed ulcer at the gastroesophageal junction. Due to his symptoms of dysphagia in 2022 I performed upper endoscopy on 11/27/2022 at which time he was found to have gastroesophageal junction at 35 cm, significant focal distal esophageal erosive esophagitis with a luminal narrowing, but possible Cheng's esophagus, gastric fundic gland polyps, diffuse gastropathy. He was dilated sequentially to 18 mm at that time. Pathology revealed chronic inactive gastritis, fundic gland polyp, nonspecific ulcerative esophagitis. Performing Provider:: Alexis Flores MD Referring Provider:: Maritza Moses Sedation:: MAC sedation Procedure:: Patient history was obtained and appropriate physical examination was performed. Patient's medications and allergies were reviewed. Informed consent was obtained after explaining the benefits, alternatives, and risks of the procedure including, but not limited to, bleeding, perforation, missed lesions, and adverse reaction to anesthesia medications. Patient was transported to endoscopy procedure room. Patient was connected to monitoring devices. Throughout the procedure the patient's blood pressure, pulse, and oxygen saturations were monitored continuously. Patient identification and planned procedure were verified by the staff. Patient was positioned in lateral decubitus position. Olympus endoscope was inserted via the oropharynx. Esophagus was cannulated. Endoscope was advanced to the distal esophagus where there was noted to be significant luminal narrowing. There was evidence of ulceration consistent with significant focal erosive esophagitis. This is characterized by deep erosion with exudate. This is located at approximately 34 cm from the incisors. Endoscope was unable to be advanced beyond this initially. Stricture was dilated sequentially from 12 mm to 13.5 to 15 mm. At this time the endoscope was able to be advanced past the gastroesophageal junction and into the gastric lumen. Insufflation was performed. There were diffuse polyps consistent with fundic gland polyps. Retroflexion revealed moderate hiatal hernia. Gastric antral mucosal biopsy was obtained for histopathologic analysis and H. pylori assessment. Gastric fundic gland polyp was biopsied. Ultimately the endoscope was advanced into the duodenum which appeared normal. Endoscope was withdrawn into the distal esophagus and biopsies were obtained at the gastroesophageal junction. Stomach was desufflated and the endoscope was withdrawn. Findings:: Gastroesophageal junction at 34 cm Significant luminal narrowing at the GE junction with stricture and severe erosive esophagitis Possible Cheng's esophagus Recommendations:: Follow-up on biopsy results. If benign may need additional dilatation performed. May benefit from gastroenterology assessment. Could require referral for consideration of hiatal hernia repair. Complications:: None immediately apparent Estimated blood obtained (mL): 3 Colonoscopy Component Colonoscopy Component Was a colonoscopy performed during today's procedure?: No
--- NOTE | 2023-12-10 07:06 | P.PNANES_ITS ---
[facility] Disclaimer: The information contained in this section may have been updated after the patient was seen, as this information can be updated by other users. Medical History Finger laceration Injury of extensor tendon of left hand Open fracture of finger Contact with powered saw as cause of accidental injury Laceration of right index finger with tendon involvement Dysphagia Upper abdominal pain Exposure to COVID-19 virus Capsulitis of metatarsophalangeal (MTP) joint of right foot Pain and swelling of toe of right foot Metatarsalgia of right foot Renal colic on left side Surgical History History of local excision of skin lesion History of colonoscopy History of esophagogastroduodenoscopy (EGD) H/O repair of rotator cuff Family History Other Family history of diabetes mellitus type II Family history of myocardial infarction Social History Smoking Status: Never smoker alcohol intake: current substance use type: denies use current occupational status: employed Travel in the last 8 weeks: None caffeine: No [facility] Anesthesia Checklist Patient Identification Patient Identification: Arm Band and Verbal (Name & ) Structural Data Admitted From: Home Planned Operative Procedure/s: EGD Consent for Planned Operative Procedure(s) Verified: Yes Verified Documents: Surgical Consent and History and Physical NPO Status Verified Time NPO: 00:00 Additional verifications Anesthesia Reactions: No Hx Blood Transfusions: No Airway Assessment Mallampati Score:: Class III C-Spine Mobility Assessed: Yes TMJ Mobility Assessed: Yes Dentition: Good Dentition Neurological Assessment Level of Consciousness: Awake Hx Seizures: No Numbness or tingling in extremities: No Anesthesia Plan Anesthesia Risk discussed: Yes Anesthesia Plan: Verified ASA Class: II Anesthesia Type: MAC
[2023-12-10 07:12] VITALS: O2SAT 96
[2023-12-10 07:35] VITALS: BP 96/62; PULSE 61; RESP 14; TEMP 36.4; O2SAT 90
[2023-12-10 07:45] VITALS: BP 98/68; PULSE 59; RESP 16; O2SAT 92
[2023-12-10 07:55] VITALS: BP 95/67; PULSE 55; RESP 18; O2SAT 94
[2023-12-10 08:05] VITALS: BP 104/67; PULSE 61; RESP 16; O2SAT 94
== END 2023-12-10 08:05 | disposition home or self-care (01) ==
PROVIDERS: PCP Nurse Practitioner Family; Visit Provider Surgery
PROC: 0DJ08ZZ Inspection of Upper Intestinal Tract, Via Natural or Artificial Opening Endoscopic (ICD-10-PCS; CPT 43235; principal; 2023-12-10 07:30)
DX: R13.10 Dysphagia, unspecified (principal); K29.60 Other gastritis without bleeding; K22.2 Esophageal obstruction; K31.7 Polyp of stomach and duodenum; K44.9 Diaphragmatic hernia without obstruction or gangrene
CPT/HCPCS: 43239; 43249; C1726; J2704; J7120

== ENCOUNTER 2024-02-18 08:41 | Day surgery (SDC) | payer BC, SELFPAY ==
[2024-02-18 08:46] VITALS: BMI 29.2
[2024-02-18 08:48] VITALS: BP 157/99; PULSE 66; RESP 17; TEMP 36.4; O2SAT 98
[2024-02-18] MEDS: LACTATED RINGERS 1000ML 1,000 ML 25 ML IV (08:55)
--- NOTE | 2024-02-18 08:59 | P.PCN_ITS ---
Procedure: Date: 02/18/24 Patient Date of :: 1965 Procedure Performed:: Esophagogastroduodenoscopy with biopsies and dilatation Indications:: Patient is a 59-year-old male. He has a previous history of dysphagia. He underwent upper endoscopy with dilatation to 20 mm on 10/22/2015. He did have several prior upper endoscopies. He actually had esophageal food impaction requiring emergent upper endoscopy on at least 2 separate occasions, once with Dr. Fong and also once at the [facility]. He had an upper endoscopy in 2007 by gastroenterology. In 2011 he had an upper endoscopy with Dr. Fong for GI bleeding and there was a ulcer at the gastroesophageal junction. 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 He had recurrent symptoms and I did a follow-up upper endoscopy on 12/10/2023. He was found to have significant luminal narrowing at the GE junction with stricture and severe erosive esophagitis. This was only able to be dilated sequentially to 15 mm. He did have some focal distal erosive esophagitis. Recommendations were for possible early repeat endoscopy. Pathology revealed intestinal metaplasia at the GE junction, gastric polyp revealed fundic gland polyp and gastric biopsy revealed reactive gastropathy with no H. pylori. 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 . Performing Provider:: Alexis Flores MD Referring Provider:: Maritza Moses Sedation:: MAC sedation Procedure:: Patient history was obtained and appropriate physical examination was performed. Patient's medications and allergies were reviewed. Informed consent was obtained after explaining the benefits, alternatives, and risks of the procedure including, but not limited to, bleeding, perforation, missed lesions, and adverse reaction to anesthesia medications. Patient was transported to endoscopy procedure room. Patient was connected to monitoring devices. Throughout the procedure the patient's blood pressure, pulse, and oxygen saturations were monitored continuously. Patient identification and planned procedure were verified by the staff. Patient was positioned in lateral decubitus position. Olympus endoscope was inserted via the oropharynx. Esophagus was cannulated. There was mild to moderate stricture at the GE junction at approximately 34 cm from the incisors. The endoscope was able to be advanced through this. He had a moderate hiatal hernia. There were multiple fundic gland polyps. Pylorus was traversed. Duodenum appeared normal. Endoscope was withdrawn into the gastric lumen and gastric biopsy was obtained. Endoscope was withdrawn into the distal esophagus and several biopsies were obtained at the gastroesophageal junction. There was noted to be a linear erosion beginning proximal to the stricture. Stricture at the GE junction was dilated sequentially beginning at 15 mm to 16.5 mm and then to 18 mm. Balloon was deflated. There was noted to be some oozing likely from previous biopsy site after dilatation. Consideration is being given for intervention and possibly injection of epinephrine. However, plan was for initial balloon tamponade. 18 to 20 mm balloon was inserted and initially inflated to 18 mm and held in position and then to 19 mm. Balloon was deflated. Minor oozing at the GE junction persisted. Plan was for epinephrine injection. However, the area established hemostasis. Irrigation was performed and there was no bleeding. For assurance of hemostasis several cc of epinephrine was injected at the site. There appeared to be good hemostasis. Stomach was deflated and the endoscope was withdrawn. . Findings:: Gastroesophageal junction at 34 cm. Moderate stricture at the GE junction Possible Cheng's esophagus Moderate hiatal hernia Multiple gastric fundic gland polyps . Recommendations:: Follow-up on histopathology. Continue proton pump inhibitors. May plan for a follow-up EGD several months. Limit to liquid diet today due to inflammation and irritation to decrease likelihood of recurrent bleeding. Complications:: None immediately apparent Estimated blood obtained (mL): 4 Colonoscopy Component Colonoscopy Component Was a colonoscopy performed during today's procedure?: No
--- NOTE | 2024-02-18 09:13 | EXP.ANES.CKL ---
[facility] Disclaimer: The information contained in this section may have been updated after the patient was seen, as this information can be updated by other users. Medical History Finger laceration Injury of extensor tendon of left hand Open fracture of finger Contact with powered saw as cause of accidental injury Laceration of right index finger with tendon involvement Dysphagia Upper abdominal pain May be GERD. With history of reported Cheng's esophagus will send for EGD as HIDA and U/S are negative. Symptoms suggestive of abdominal migraine. Will readdress after EGD results available. Exposure to COVID-19 virus Capsulitis of metatarsophalangeal (MTP) joint of right foot Pain and swelling of toe of right foot Metatarsalgia of right foot Renal colic on left side Surgical History History of local excision of skin lesion History of colonoscopy History of esophagogastroduodenoscopy (EGD) H/O repair of rotator cuff Family History Other Family history of diabetes mellitus type II Family history of myocardial infarction Social History Smoking Status: Never smoker alcohol intake: never substance use type: denies use current occupational status: employed Travel in the last 8 weeks: None caffeine: No Have you lived/traveled outside [place] in past 30 days?: No Contact w/someone who lives/traveled outside US past 30 days?: No Exposure to someone with infectious disease in past 14 days?: No Do you have a fever (greater than 100.4 F or 38 C)?: No Have you tested positive for COVID-19: Yes Exposed to someone with COVID-19 in past 14 days?: No Do you have a sore throat?: No Do you have a cough?: No Do you have any weakness?: No Are you experiencing any nausea/vomitting?: No Do you have any diarrhea?: No Are you experiencing any unusual bleeding?: No Do you have any muscle aches/pain?: No Do you have any abdominal pain?: No Are you experiencing loss of taste or smell?: No [facility] Anesthesia Checklist Patient Identification Patient Identification: Arm Band Structural Data Admitted From: Home Planned Operative Procedure/s: EGD Consent for Planned Operative Procedure(s) Verified: Yes Verified Documents: Surgical Consent and History and Physical NPO Status Verified Time NPO: 00:00 Additional verifications Anesthesia Reactions: No Hx Blood Transfusions: No Airway Assessment Mallampati Score:: Class II C-Spine Mobility Assessed: Yes TMJ Mobility Assessed: Yes Neurological Assessment Level of Consciousness: Awake, Alert and Appropriate Anesthesia Plan Anesthesia Risk discussed: Yes Anesthesia Plan: Verified ASA Class: II Anesthesia Type: MAC
[2024-02-18 09:14] VITALS: O2SAT 98
[2024-02-18 09:50] VITALS: BP 112/72; PULSE 75; RESP 16; O2SAT 94
[2024-02-18 10:00] VITALS: BP 104/73; PULSE 71; RESP 71; O2SAT 94
[2024-02-18 10:10] VITALS: BP 101/55; PULSE 66; RESP 16; O2SAT 95
--- NOTE | 2024-02-18 10:15 | SUR.OPER ---
0935-0.2mg epi injected per MD
[2024-02-18 10:20] VITALS: BP 111/68; PULSE 70; RESP 16; O2SAT 95
--- NOTE | 2024-02-18 10:36 | SUR.PHASEII ---
1013: Pt complaining of chest burning and heavyness . Placed order for [address] Flores. Normal sinus rhythm. OK to d/c home per Dr. Flores.
--- NOTE | 2024-02-18 10:45 | XR_ITS ---
FINAL REPORT TECHNIQUE: Chest PA & Lateral CLINICAL HISTORY: chest discomfort sp egd COMPARISON: None FINDINGS: 2 views of the chest were performed. The heart size is normal. The mediastinum is within normal limits. There are mild chronic changes of the lungs. There is no acute cardiopulmonary process. There are no pleural effusions. There is no pneumothorax. The bony thorax appears intact. IMPRESSION: No acute cardiopulmonary process. Reviewed, Interpreted and Dictated by Aaron Smiley MD Transcribed by Elzbieta Portillo Authenticated and [facility]
--- NOTE | 2024-02-18 10:51 | SUR.PHASEII ---
1013: Pt complaining of chest discomfort. EKG done per order Dr. Flores. NSR. New orders for triponin and chest xray. Will evaluate d/c after results.
--- NOTE | 2024-02-18 11:05 | SUR.PHASEII ---
1105: Pt to radiology per techs.
--- NOTE | 2024-02-18 11:16 | SUR.PHASEII ---
1115: 95% ra, 62hr, 16rr. Pt reports no pain or discomfort at this time.
[2024-02-18 11:42] LABS: Troponin I < 0.01 ng/ml (0.00-0.034)
--- NOTE | 2024-02-18 12:18 | SUR.PHASEII ---
1215: 95%ra, 67hr. Pt has no complaints at this time.
--- NOTE | 2024-02-18 12:43 | SUR.PHASEII ---
1243: ok to d/c home with xray results per Dr. Flores.
== END 2024-02-18 12:44 | disposition home or self-care (01) ==
PROVIDERS: PCP Nurse Practitioner Family; Visit Provider Surgery
PROC: 0DJ08ZZ Inspection of Upper Intestinal Tract, Via Natural or Artificial Opening Endoscopic (ICD-10-PCS; CPT 43239; principal; 2024-02-18 11:30)
DX: R13.10 Dysphagia, unspecified (principal); K22.70 Barrett's esophagus without dysplasia; K44.9 Diaphragmatic hernia without obstruction or gangrene; K31.7 Polyp of stomach and duodenum
CPT/HCPCS: 43239; 43249; 71046; 84484; C1726; J0171; J2704; J7120

== ENCOUNTER 2024-03-07 15:51 | Outpatient (CLI) | payer BC, SELFPAY ==
--- NOTE | 2024-03-07 15:55 | XR_ITS ---
FINAL REPORT CLINICAL HISTORY: pain states planning for injection right shoulder COMPARISON: None FINDINGS: RIGHT SHOULDER 3 views show no evidence of acute displaced fracture or dislocation of the visualized bony architecture. There is faint calcification adjacent to the humeral head, likely secondary to calcific tendinitis. There is minimal sclerosis present in the humeral head as well, probably related to rotator cuff disease. IMPRESSION: Calcific tendinitis without acute bony abnormality. Reviewed, Interpreted and Dictated by Genie Sanches MD Transcribed by Kelly Lanza Authenticated and [facility]
== END 2024-03-07 23:59 | disposition home or self-care (01) ==
LOC: RAD 15:52
PROVIDERS: PCP Nurse Practitioner Family; Visit Provider Surgery
DX: M25.511 Pain in right shoulder (principal)
CPT/HCPCS: 73030

== ENCOUNTER 2024-07-28 10:17 | Day surgery (SDC) | payer BC, SELFPAY ==
[2024-07-26 16:46] VITALS: BMI 29.9
[2024-07-28] VITALS (7 sets, daily range): BP systolic 101–147; BP diastolic 61–82; PULSE 63–73; RESP 16–18; TEMP 36.1–36.2; O2SAT 91–100
[2024-07-28] MEDS: LACTATED RINGERS 1000ML 1,000 ML 999 ML IV (10:46)
--- NOTE | 2024-07-28 11:02 | EXP.ANES.CKL ---
[facility] Disclaimer: The information contained in this section may have been updated after the patient was seen, as this information can be updated by other users. Medical History Left shoulder pain Finger laceration Injury of extensor tendon of left hand Open fracture of finger Contact with powered saw as cause of accidental injury Laceration of right index finger with tendon involvement Dysphagia Upper abdominal pain Exposure to COVID-19 virus Capsulitis of metatarsophalangeal (MTP) joint of right foot Pain and swelling of toe of right foot Metatarsalgia of right foot Renal colic on left side Surgical History History of local excision of skin lesion History of colonoscopy History of esophagogastroduodenoscopy (EGD) H/O repair of rotator cuff Family History Other Family history of diabetes mellitus type II Family history of myocardial infarction Social History Smoking Status: Never smoker alcohol intake: never substance use type: denies use current occupational status: employed Travel in the last 8 weeks?: None caffeine: Yes Have you lived/traveled outside [place] in past 30 days?: No Contact w/someone who lives/traveled outside [place] past 30 days?: No Exposure to someone with infectious disease in past 14 days?: No Do you have a fever (greater than 100.4 F or 38 C)?: No Have you tested positive for COVID-19?: No Exposed to someone with COVID-19 in past 14 days?: No Do you have a sore throat?: No Do you have a cough?: No Do you have any weakness?: No Are you experiencing any nausea/vomitting?: No Do you have any diarrhea?: No Are you experiencing any unusual bleeding?: No Do you have any muscle aches/pain?: No Do you have any abdominal pain?: No Are you experiencing loss of taste or smell?: No [facility] Anesthesia Checklist Patient Identification Patient Identification: Arm Band and Verbal (Name & ) Structural Data Admitted From: Home Planned Operative Procedure/s: EGD Consent for Planned Operative Procedure(s) Verified: Yes Verified Documents: Surgical Consent and History and Physical NPO Status Verified Time NPO: 00:00 Additional verifications Anesthesia Reactions: No Hx Blood Transfusions: No Airway Assessment Mallampati Score:: Class II Neurological Assessment Level of Consciousness: Awake, Alert and Appropriate Hx Seizures: No Anesthesia Plan Anesthesia Risk discussed: Yes Anesthesia Plan: Verified ASA Class: I Anesthesia Type: MAC
--- NOTE | 2024-07-28 11:21 | EXP.GEN.HP ---
HPI HPI HPI: Patient presents for follow-up upper endoscopy. He has a previous history of dysphagia. He underwent upper endoscopy with dilatation to 20 mm on 10/22/2015. He did have several prior upper endoscopies. He actually had esophageal food impaction requiring emergent upper endoscopy on at least 2 separate occasions, once with Dr. Fong and also once at the [facility]. He had an upper endoscopy in 2007 by gastroenterology. In 2011 he had an upper endoscopy with Dr. Fong for GI bleeding and there was a ulcer at the gastroesophageal junction. 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 He had recurrent symptoms and I did a follow-up upper endoscopy on 12/10/2023. He was found to have significant luminal narrowing at the GE junction with stricture and severe erosive esophagitis. This was only able to be dilated sequentially to 15 mm. He did have some focal distal erosive esophagitis. Recommendations were for possible early repeat endoscopy. Pathology revealed intestinal metaplasia at the GE junction, gastric polyp revealed fundic gland polyp and gastric biopsy revealed reactive gastropathy with no H. pylori. 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 Upper endoscopy performed on 02/18/2024 revealed GE junction at 34 cm with moderate stricture and a moderate hiatal hernia. There were multiple fundic gland polyps. Biopsies revealed reactive gastropathy and findings of reflux esophagitis without intestinal metaplasia. He was dilated to 18 mm. Post procedure the patient was having some transient chest discomfort he underwent thorough evaluation including chest x-ray, EKG, troponins and this was all unremarkable. He had no additional symptoms and no dysphagia. He is on proton pump inhibitors. [facility] Disclaimer: The information contained in this section may have been updated after the patient was seen, as this information can be updated by other users. Medical History Left shoulder pain Finger laceration Injury of extensor tendon of left hand Open fracture of finger Contact with powered saw as cause of accidental injury Laceration of right index finger with tendon involvement Dysphagia Upper abdominal pain Exposure to COVID-19 virus Capsulitis of metatarsophalangeal (MTP) joint of right foot Pain and swelling of toe of right foot Metatarsalgia of right foot Renal colic on left side Surgical History History of local excision of skin lesion History of colonoscopy History of esophagogastroduodenoscopy (EGD) H/O repair of rotator cuff Family History Other Family history of diabetes mellitus type II Family history of myocardial infarction Social History Smoking Status: Never smoker alcohol intake: never substance use type: denies use current occupational status: employed Travel in the last 8 weeks?: None caffeine: Yes Have you lived/traveled outside US in past 30 days?: No Contact w/someone who lives/traveled outside [place] past 30 days?: No Exposure to someone with infectious disease in past 14 days?: No Do you have a fever (greater than 100.4 F or 38 C)?: No Have you tested positive for COVID-19?: No Exposed to someone with COVID-19 in past 14 days?: No Do you have a sore throat?: No Do you have a cough?: No Do you have any weakness?: No Are you experiencing any nausea/vomitting?: No Do you have any diarrhea?: No Are you experiencing any unusual bleeding?: No Do you have any muscle aches/pain?: No Do you have any abdominal pain?: No Are you experiencing loss of taste or smell?: No Other Medical History Have you received the Pneumonia Vaccine: No Review of Systems Review of Systems Review of systems:: pertinent systems reviewed and negative unless documented below Meds Home Medications and Allergies Home Medications ?Medication ?Instructions ?Recorded ?Confirmed ?Type pantoprazole 40 mg tablet,delayed 40 mg PO DAILY #30 tabs 07/10/24 07/28/24 Rx release (Protonix) New Prescriptions to Start Prescriptions: Allergies Allergy/AdvReac Type Severity Reaction Status Date / Time morphine Allergy Hives Verified 03/09/24 09:31 Exam Data for Last 24 hours Vital signs and Labs for Last 24 Hours: Temp Pulse Resp BP O2 Del Method 97.1 F L 68 16 147/82 H Room Air 07/28/24 10:39 07/28/24 10:39 07/28/24 10:39 07/28/24 10:47 07/28/24 10:39 I & O for Last 24 hours: Intake & Output 07/25/24 07/26/24 07/27/24 07/28/24 11:59 11:59 11:59 11:59 Weight 215 lb Constitutional Constitutional: no acute distress *Routine HEENT Exam Head: Present normocephalic Eye: Present EOMI and PERRL ENT: Present mucous membranes moist *Routine Neck Exam Neck: Present supple; Absent lymphadenopathy *Routine Respiratory Exam Respiratory: Present CTA bilaterally *Routine Cardiovascular Exam Cardiovascular: Present RRR *Routine Abdominal Exam Abdominal: Present soft and normoactive bowel sounds; Absent tenderness *Routine Rectal Exam Rectal:: deferred *Routine Genitalia Exam Genitalia:: deferred *Routine Extremities Exam Extremities: Absent cyanosis, clubbing or edema *Routine Skin Exam Skin: Present warm; Absent rash *Routine Neurological Exam Neurological: Present alert and oriented X3 Assessment and Plan *Assessment and plan (1) Esophageal stricture: Status: Acute Category: Medical Code(s): K22.2 - Esophageal obstruction Plan Plan to proceed with upper endoscopy with possible dilatation and biopsies.
--- NOTE | 2024-07-28 11:48 | HMH.SCOPE ---
Procedure: Date: 07/28/24 Patient Date of :: 1965 Procedure Performed:: Esophagogastroduodenoscopy with biopsies and dilatation to 20 mm using pneumatic dilation balloon dilator Indications:: Patient presents for follow-up upper endoscopy. He has a previous history of dysphagia. He underwent upper endoscopy with dilatation to 20 mm on 10/22/2015. He did have several prior upper endoscopies. He actually had esophageal food impaction requiring emergent upper endoscopy on at least 2 separate occasions, once with Dr. Fong and also once at the [facility]. He had an upper endoscopy in 2007 by gastroenterology. In 2011 he had an upper endoscopy with Dr. Fong for GI bleeding and there was a ulcer at the gastroesophageal junction. 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 He had recurrent symptoms and I did a follow-up upper endoscopy on 12/10/2023. He was found to have significant luminal narrowing at the GE junction with stricture and severe erosive esophagitis. This was only able to be dilated sequentially to 15 mm. He did have some focal distal erosive esophagitis. Recommendations were for possible early repeat endoscopy. Pathology revealed intestinal metaplasia at the GE junction, gastric polyp revealed fundic gland polyp and gastric biopsy revealed reactive gastropathy with no H. pylori. 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 Upper endoscopy performed on 02/18/2024 revealed GE junction at 34 cm with moderate stricture and a moderate hiatal hernia. There were multiple fundic gland polyps. Biopsies revealed reactive gastropathy and findings of reflux esophagitis without intestinal metaplasia. He was dilated to 18 mm. Post procedure the patient was having some transient chest discomfort he underwent thorough evaluation including chest x-ray, EKG, troponins and this was all unremarkable. He had no additional symptoms and no dysphagia. He is on proton pump inhibitors. He has been asymptomatic. Performing Provider:: Alexis Flores MD Referring Provider:: Maritza Moses Sedation:: MAC sedation Procedure:: Patient history was obtained and appropriate physical examination was performed. Patient's medications and allergies were reviewed. Informed consent was obtained after explaining the benefits, alternatives, and risks of the procedure including, but not limited to, bleeding, perforation, missed lesions, and adverse reaction to anesthesia medications. Patient was transported to endoscopy procedure room. Patient was connected to monitoring devices. Throughout the procedure the patient's blood pressure, pulse, and oxygen saturations were monitored continuously. Patient identification and planned procedure were verified by the staff. Patient was positioned in lateral decubitus position. Olympus endoscope was inserted via the oropharynx. Esophagus was cannulated gastroesophageal junction was encountered at approximately 34 cm from the incisors. There was some moderate circumferential erosive esophagitis characterized by circumferential exudate near the GE junction. There was minor stricture. At the GE junction there was some prominent mucosa consistent with Cheng's esophagus. Stomach was cannulated and insufflated. There were findings consistent with gastric fundic gland polyps. Retroflexion revealed 3 to 4 cm sliding hiatal hernia. Gastric antral mucosal biopsy was obtained. Several biopsies were obtained of the gastroesophageal junction. Minor stricture at the GE junction was sequentially dilated using the elation balloon dilator from 18 mm to 19 mm and ultimately to 20 mm luminal diameter. The endoscope was advanced into the gastric lumen and the stomach was desufflated as the endoscope was withdrawn. Findings:: Gastroesophageal junction at 34 cm Exudative erosive esophagitis Possible Cheng's esophagus Small to moderate sliding hiatal hernia Diffuse gastropathy Fundic gland polyps Recommendations:: I will follow-up on the histopathology. Complications:: None immediately apparent Estimated blood obtained (mL): 2 Colonoscopy Component Colonoscopy Component Was a colonoscopy performed during today's procedure?: No
== END 2024-07-28 12:15 | disposition home or self-care (01) ==
PROVIDERS: PCP Nurse Practitioner Family; Visit Provider Surgery
PROC: 0DJ08ZZ Inspection of Upper Intestinal Tract, Via Natural or Artificial Opening Endoscopic (ICD-10-PCS; CPT 43239; principal; 2024-07-28 12:30)
DX: K44.9 Diaphragmatic hernia without obstruction or gangrene; K22.10 Ulcer of esophagus without bleeding; K31.7 Polyp of stomach and duodenum; K29.50 Unspecified chronic gastritis without bleeding; Z79.899 Other long term (current) drug therapy; Z88.5 Allergy status to narcotic agent
CPT/HCPCS: 43239; 43249; C1726; J2003; J2704; J7120